=== PATIENT | female | born 1980 | race African-American/Black ===

== ENCOUNTER 2024-12-16 14:39 | Emergency (ER) | payer OTHER, MEDICAID, SELFPAY ==
--- NOTE | ~2024-12-16 | XR_ITS ---
EXAM: XR lumbar spine 2-3V DATE: 12/16/2024 16:33 HISTORY: left sciatica . COMPARISON: None available. FINDINGS: 5 nonrib-bearing lumbar-type vertebral bodies. Pedicles intact. Normal vertebral body alig nment. Vertebral body heights preserved. Moderate degenerative disc disease at L5-S1. Mild lower lumb ar facet arthropathy. No fracture or dislocation. IMPRESSION: No acute fracture or traumatic malalignment detected in the lumbar spine. Reviewed, dictated and finalized at location K.
[2024-12-16 14:40] VITALS: BP 157/96; PULSE 89; RESP 18; TEMP 37.1; O2SAT 96
--- OUTSIDE RECORDS SUMMARY | 2024-12-16 14:41 | XMS_ITS | Clinical Summary ---
Author Organization [facility] Care Team Providers Care Fixed Income Analyst Name Role Phone Unavailable Primary Care Provider Unavailabl e Social History Tobacco Use Types Packs/Day Years Used Date Smoking Tobacco: Never Assessed Comments Unknown Sex and Gender Information Value Date Recorded Sex Assigned at Not on file Legal Sex Female 8:06 AM CDT Gender Identity Not on file Sexual Orientation Not on file Plan of Treatment Health Maintenance Due Date Last Done Comments Hepatitis C Virus (HCV) Screening 1978 TdaP Immunization 1978 Hepatitis B Immunization (1 of 3 - 19+ 3-dose series) 1997 Pap Smear 1999 Cervical Cancer Screening (CCS) 01/02/2008 HPV/Cotest 01/02/2008 Cologuard 2023 Colonoscopy 2023 Colorectal Cancer Screening 2023 Immunochemical Fecal Occult Blood 2023 SARS-COV-2 Immunization ( season) 2024 Influenza Immunization (#1) 2025 Respiratory Syncytial Virus (RSV) Immunization (Adult) (1 - 1-dose 75+ series) 2053 Human Papillomavirus (HPV) Immunization Aged Out No longer eligible b ased on patient's age to complete this topic Meningococcal Immunization (ACWY) Aged Out No longer eligible based on patient's age to complete this topic Pneumococcal Immunization Combined Aged Out No longer eligible based on patient's age to complete this topic Rotavirus Immunization Aged Out No lo nger eligible based on patient's age to complete this topic
[2024-12-16 15:24] VITALS: BP 158/102; PULSE 81; RESP 16; TEMP 37.1; O2SAT 99
[2024-12-16 16:36] VITALS: BP 159/104; PULSE 72; RESP 16; O2SAT 99
--- OUTSIDE RECORDS SUMMARY | 2024-12-16 17:03 | XMS_ITS | Clinical Summary ---
Author Organization [facility] Care Team Providers Care Recreation Assistant Name Role Phone Unavailable Primary Care Provider [...]
--- NOTE | 2024-12-16 17:20 | ED.BACK ---
HPI - Back Pain/Injury General Chief Complaint: Back Pain/Injury Stated Complaint: lower back pain Time Seen by Provider: 12/16/24 16:01 History of Present Illness HPI Narrative: Patient is a 44-year-old female who presents ER with left-sided low back pain. Ongoing intermittently over last 2 weeks. She takes naproxen helps briefly but then the pain comes back. Has some sensation numbness the posterior aspect of the left thigh. No trauma. No fevers or chills or sweats. No difficulty with urination/defecation. No saddle anesthesia. Related Data Allergies Allergy/AdvReac Type Severity Reaction Status Date / Time No Known Allergies Allergy Verified 12/16/24 15:27 Review of Systems Review of Systems: All systems reviewed & are unremarkable except as noted in HPI and below Constitutional: Constitutional: Reports no additional constitutional complaints Cardiovascular: Cardiovascular: Reports no additional cardiovascular complaints Respiratory: Respiratory: Reports no additional respiratory complaints Musculoskeletal: Musculoskeletal: Reports no additional musculoskeletal complaints Neurologic: Reports system reviewed and no additional complaints, except as documented PMFSH Past Medical History Medical History (Updated 12/16/24 @ 17:22 by Andrew Eisenberg MD) Healthy female adult Surgical History Surgical History (Updated 12/16/24 @ 17:21 by Andrew Eisenberg MD) No pertinent past surgical history Exam Narrative: GENERAL: Well-appearing, well-nourished, and in no acute distress. HEAD: Normocephalic, atraumatic. ENT: Mucous membranes moist. Back: No reproducible midline tenderness of the T/L-spine. Mild discomfort in the SI region on the left side that reproduces pain. EXTREMITIES: Normal range of motion. No edema. Able to stand and walk without issue. SKIN: Warm, dry, no rash. NEURO: Alert and oriented x3. PSYCH: Normal mood and affect. Course Course Emergency Course: Discussed imaging results. Patient would prefer treatment at home with something other than naproxen. Will place on Medrol Dosepak and muscle relaxers. Recommend follow-up with PCP. Discussed she may require physical therapy or MRI in the future if symptoms persist. Toradol for pain here. Vital Signs Vital signs: Vital Signs Temperature 98.7 F 12/16/24 14:40 Pulse Rate 89 12/16/24 14:40 Respiratory Rate 18 12/16/24 14:40 Blood Pressure 157/96 H 12/16/24 14:40 Pulse Oximetry 96 12/16/24 14:40 Oxygen Delivery Room Air 12/16/24 14:40 Temperature 98.7 F 12/16/24 15:24 Pulse Rate 72 12/16/24 16:36 Respiratory Rate 16 12/16/24 16:36 Blood Pressure 159/104 H 12/16/24 16:36 Pulse Oximetry 99 12/16/24 16:36 Oxygen Delivery Room Air 12/16/24 15:24 Discharge Plan Discharge Clinical Impression: Sciatica Patient Disposition: Home Condition: Stable Instructions: Sciatica (ED) Additional Instructions: Please return to the emergency department if you develop severe pain that is not controlled by pain medications or if you are unable to walk because of pain or weakness. Return to the emergency department immediately if you develop fevers, loss of bowel or bladder control (dribbling of urine or having accidents you wouldn't normally have), inability to urinate, numbness of your genital or anal area, or weakness/numbness of your legs or arms as these could all be signs of a serious medical emergency. Patient Language: Ukrainian Prescriptions: New methylprednisolone [Medrol (Sergio)] 4 mg tablets,dose pack See Rx Instructions .ROUTE .COMPLEX Qty: 21 0RF Rx Instructions: orally per package directions cyclobenzaprine 10 mg tablet 10 mg PO TID PRN (Reason: muscle spasm) Qty: 20 0RF Follow-up/Referrals: Marc Serrano MD [Physician] - 1 Week PHYSICIAN,COMBINATION OPERATOR [Primary Care Provider] -
[2024-12-16] MEDS: KETOROLAC 30 MG/ML VIAL (*BKC) IM (17:24)
[2024-12-16 17:39] VITALS: BP 177/111; PULSE 70; RESP 17; TEMP 37.2; O2SAT 100
== END 2024-12-16 17:43 | disposition home or self-care (01) ==
PROVIDERS: Emergency Provider Emergency Medicine
DX: M54.42 Lumbago with sciatica, left side (principal)
CPT/HCPCS: 72100; 96372; 99283; J1885